=== PATIENT | male | born 1995 | race Caucasian/White ===

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

== ENCOUNTER 2017-11-06 17:40 | Emergency (ER) | payer OTHER ==
[2017-11-06] MEDS ORDERED: methylPREDNISolone 125 MG* 2 ML VIAL IV ONE (18:06)
[2017-11-06] MEDS ORDERED: diPHENhydraMINE IV* 50 MG/ML 1 ml VIAL (BENADRYL) IV ONE (18:06)
[2017-11-06] MEDS ORDERED: Famotidine IV* 10 MG/ML 2 ML (20 mg) IV SLOW PU ONE (18:07)
--- NOTE | 2017-11-06 18:30 | ED ---
Allergic Reaction/Systemic - HPI Summary HPI Summary: 22-year-old male presents with allergic reaction today. He states he ate some nutmeg in some pasta. He states immediately after he developed some shortness breath and chest tightness. He states he was seen by 5 start and given epipen. He immediately after that his symptoms resolved. He states his neck feels a little bit itchy. He has not taken anything else. No vomiting. No nausea or abd pain. 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 States that this reaction similar to his other reactions with tree nuts. no wheezing or history of asthma. He states that steroids make him very anxious any does not want steroids. - History of Current Complaint Chief Complaint: EDAllergicReaction Time Seen by Provider: 11/06/17 17:51 Pain Intensity: 0 - Allergies/Home Medications Allergies/Adverse Reactions: Allergies Allergy/AdvReac Type Severity Reaction Status Date / Time Tree Nuts Allergy Difficulty Verified 11/06/17 17:43 Breathing/Wheezing Home Medications: Home Medications NK [No Home Medications Reported] 11/06/17 [History Confirmed 11/06/17] PMH/Surg Hx/FS Hx/Imm Hx Endocrine/Hematology History: Denies: Hx Diabetes Cardiovascular History: Denies: Hx Myocardial Infarction Psychiatric History: Reports: Hx Anxiety Infectious Disease History: No Infectious Disease History: Denies: Traveled Outside the [place] in Last 30 Days - Family History Known Family History: Negative: Respiratory Disease Family History: FHx of HLD. - Social History Alcohol Use: Occasionally Hx Substance Use: No Substance Use Type: Reports: None Smoking Status (MU): Never Smoked Tobacco Review of Systems Negative: Fever Positive: Chest Pain - resolved Positive: Shortness Of Breath - resolved. Negative: Cough Negative: Abdominal Pain All Other Systems Reviewed And Are Negative: Yes Physical Exam Triage Information Reviewed: Yes Vital Signs On Initial Exam: Initial Vitals Temp Pulse Resp BP Pulse Ox 98.6 F 71 18 118/74 96 11/06/17 17:41 11/06/17 17:41 11/06/17 17:41 11/06/17 17:41 11/06/17 17:41 Vital Signs Reviewed: Yes Appearance: Positive: Well-Appearing Skin: Positive: Warm, Dry Head/Face: Positive: Normal Head/Face Inspection Eyes: Positive: Normal, Conjunctiva Clear ENT: Positive: Pharynx normal Respiratory/Lung Sounds: Positive: Clear to Auscultation, Breath Sounds Present Cardiovascular: Positive: Normal, RRR Abdomen Description: Positive: Nontender, Soft Bowel Sounds: Positive: Present Musculoskeletal: Positive: Normal Neurological: Positive: Normal Psychiatric: Positive: Normal Diagnostics - Vital Signs Vital Signs Temp Pulse Resp BP Pulse Ox 11/06/17 18:14 83 122/68 98 11/06/17 18:00 93 99 11/06/17 17:41 98.6 F 71 18 118/74 96 - Laboratory Lab Statement: Any lab studies that have been ordered have been reviewed, and results considered in the medical decision making process. Re-Evaluation - Re-Evaluation First Eval Re-Evaluation Time: 19:09 Change: Improved Comment: no symptoms Allergic Reaction Course/Dx - Course Course Of Treatment: 22-year-old male presents with allergic reaction today. He states he ate some nutmeg in some pasta. He states immediately after he developed some shortness breath and chest tightness. He states he was seen by 5 start and given epipen. He immediately after that his symptoms resolved. He states his neck feels a little bit itchy. He has not taken anything else. No vomiting. No nausea or abd pain. 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 States that this reaction similar to his other reactions with tree nuts. no wheezing or history of asthma. He states that steroids make him very anxious any does not want steroids. On exam lungs clear to auscultation. Abdomen soft nontender. No urticaria. Gave Benadryl and Pepcid and patient declined steroid. Told to continue Benadryl at home. patient observed for over an hour. Patient has an up-to-date EpiPen. Patient understands and agrees with plan. - Diagnoses Differential Diagnosis/HQI/PQRI: Positive: Anaphylaxis, Local Allergic Reaction , Urticaria Provider Diagnoses: Allergic reaction Discharge - Sign-Out/Discharge Documenting (check all that apply): Patient Departure - Discharge Plan Condition: Good Disposition: HOME Patient Education Materials: Food Allergy (ED) Referrals: No Primary Care Phys,NOPCP [Primary Care Provider] - Additional Instructions: Take Benadryl every 6 hours for next 24 hours Return to ED if develop SOB, difficulty swallowing or any new or worsening symptoms - Billing Disposition and Condition Condition: GOOD Disposition: Home
[2017-11-06 19:44] VITALS: BP 124/81
== END 2017-11-06 19:43 | disposition home or self-care (01) ==
LOC: ED 17:40
DX: T78.1XXA Other adverse food reactions, not elsewhere classified, initial encounter (principal); R06.02 Shortness of breath; R07.89 Other chest pain; X58.XXXA Exposure to other specified factors, initial encounter; Z91.018 Allergy to other foods
CPT/HCPCS: 96374; 96375; 99283; J1200